=== PATIENT | female | born 1980 | race Hispanic/Latino ===

== ENCOUNTER 2017-11-14 00:27 | Emergency (ER) | payer OTHER ==
[~2017-11-14] VITALS: Ht 170.2 cm; Wt 80.7 kg
[~2017-11-14 00:27] MED LIST: BENTYL20 M1 PO; BUSPIRONE HCL10 MG PO; CIPRO 500MG (E500 MG PO; COD LIVER OIL1 CAP PO; DOXYCYCLINE100 MG PO; FLEXERIL10 MG PO; MIRENA52 MG; MOTRIN800 MG PO; NAPROXEN500 MG PO; NATURAL IRON65 MG PO; PERCOCET 325 MG1 TAB PO; RITE AID BIO2500 MCG PO; TRAMADOL50 MG PO; VITAMIN B COMPL1 CAP PO; VITAMIN C500 M3 PO; [UNRECOGNIZED DRUG - OTHER] PO
--- NOTE | 2017-11-14 00:33 | ED GI/GU/ABDOMINAL COMPLAINT ---
History of Present Illness General Chief Complaint: General Adult Stated Complaint: "UTI, ONLY HAVE ONE KIDNEY" 30 WEEKS PREG PER PT Source: patient Exam Limitations: no limitations Vital Signs & Intake/Output Vital Signs & Intake/Output Vital Signs Date Time Temp Pulse Resp B/P B/P Pulse O2 O2 Flow FiO2 Mean Ox Delivery Rate 11/14 0037 97.8 72 18 98/62 100 Room Air Allergies Coded Allergies: NO KNOWN ALLERGIES (11/10/14) Reconcile Medications Buspirone Hydrochloride (Buspirone HCl) 10 MG TAB 1 TAB PO BID HEART RACING ( Reported) Cephalexin (Keflex) 500 MG CAPSULE 1 CAP PO 4 TIMES/DAY INFECTION x 10 days Dicyclomine HCl (Bentyl) 20 MG TABLET 1 TAB PO 4 TIMES/DAY ABDOMINAL PAIN Triage Nurses Notes Reviewed? yes ? y Is pt currently ? No Onset: Gradual Duration: hour(s): Timing: recent history Location: suprapubic Radiation: no radiation Activities at Onset: none Modifying Factors: Worsens With: urinating. Associated Symptoms: dysuria HPI: 36 yo woman 30 week gestation, h/o single kidney presents with increased urination, dysuria, "I have a urinary tract infection... it really patricai." She noted a few episode of abdominal pain, "It felt a little stronger than stephanie garcia contractions..." She denies fever, flank pain, nausea, vomiting, vaginal bleeding or discharge. She is otherwise well. Past History Travel History Traveled to [place] past 21 day No Medical History Any Pertinent Medical History? 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 No Review of Systems Review of Systems Constitutional: Reports: no symptoms. EENTM: Reports: no symptoms. Respiratory: Reports: no symptoms. Cardiovascular: Reports: no symptoms. GI: Reports: no symptoms. Genitourinary: Reports: no symptoms. Musculoskeletal: Reports: no symptoms. Skin: Reports: no symptoms. Neurological/Psychological: Reports: no symptoms. Hematologic/Endocrine: Reports: no symptoms. Immunologic/Allergic: Reports: no symptoms. All Other Systems: Reviewed and Negative Physical Exam Physical Exam Gastrointestinal: see below Comments: Review of Systems - except as otherwise noted in HPI Physical Exam Physical Exam General Appearance: well developed/nourished, no apparent distress Head: atraumatic, normal appearance Eyes: Bilateral: normal appearance. Ears, Nose, Throat: normal pharynx, normal ENT inspection Neck: normal inspection, supple, full range of motion Respiratory: normal breath sounds, chest non-tender, no respiratory distress, quiet respiration, lungs clear Cardiovascular: regular rate/rhythm Gastrointestinal: normal bowel sounds, soft, gravid uterus above umbilicus, mild suprapubic tendernss. no CVA tenderness. Back: normal inspection, normal range of motion Extremities: normal inspection, normal capillary refill, normal range of motion, no edema Neurologic/Psych: no motor/sensory deficits, awake, alert, oriented x 3 Skin: intact, normal color, warm/dry Core Measures ACS in differential dx? No Sepsis Present: No Sepsis Focused Exam Completed? No Progress Differential Diagnosis: UTI/pyelo, vs other Plan of Care: Orders Procedure Date/time Status CULTURE,URINE 11/14 28 Active URINALYSIS 11/14 28 Complete CBC WITHOUT DIFFERENTIAL 11/14 28 Complete BASIC METABOLIC PANEL 11/14 28 Complete Laboratory Tests 11/14/17 0117: Anion Gap 9, Estimated GFR > 60, BUN/Creatinine Ratio 12.9, Glucose 89, Calcium 9.1, CBC w Diff NO MAN DIFF REQ, RBC 3.36 L, MCV 93.7, MCH 32.0 H, MCHC 34.2, RDW 12.9, MPV 8.1, Gran % 78.0 H, Lymphocytes % 13.4 L, Monocytes % 7.1, Eosinophils % 1.2, Basophils % 0.3, Absolute Granulocytes 10.3 H, Absolute Lymphocytes 1.8, Absolute Monocytes 0.9 H, Absolute Eosinophils 0.2, Absolute Basophils 0 11/14/17 0035: Urinalysis LIGHT H, Urine Color YEL, Urine Clarity HAZY H, Urine pH 7.0, Ur Specific Calvin 1.010, Urine Protein NEG, Urine Ketones NEG, Urine Nitrite NEG, Urine Bilirubin NEG, Urine Urobilinogen 0.2, Ur Leukocyte Esterase LARGE H, Ur Microscopic SEDIMENT EXAMINED, Urine RBC 5-10 H, Urine WBC 25-50 H, Ur Epithelial Cells FEW, Urine Bacteria MOD H, Urine Hemoglobin MOD H, Urine Glucose NEG Microbiology 11/14 0035 URINE ROUT: Urine Culture - RECD Initial ED EKG: none Departure Departure Disposition: HOME OR SELF CARE Condition: Stable Clinical Impression Primary Impression: Urinary tract infection Secondary Impressions: Referrals: Arnold ROBERTO,Lloyd Ramachandran (PCP/Family) Departure Forms: Customer Survey General Discharge Information Prescriptions: Current Visit Scripts Cephalexin (Keflex) 1 CAP PO 4 TIMES/DAY #40 CAP x 10 days Comments 11/14/17, 2:20am... pt feeling well, comfortable in ED... afebrile... pt referred to child to evaluate for intermittent sensation of contractions. Comments 11/14/17, 2:20am... pt feeling well, comfortable in ED...
[2017-11-14 01:32] LABS: ABSOLUTE BASOPHIL COUNT 0 /CUMM (0.0-0.2); ABSOLUTE EOSINOPHIL COUNT 0.2 /CUMM (0.0-0.7); ABSOLUTE GRANULOCYTE CT 10.3 /CUMM (1.4-6.5); ABSOLUTE LYMPH COUNT 1.8 /CUMM (1.2-3.4); ABSOLUTE MONOCYTE COUNT 0.9 /CUMM (0.10-0.60); BASOPHIL % 0.3 % (0.0-2.0); EOSINOPHIL % 1.2 % (0-5); HEMATOCRIT 31.5 % (37-47); MEAN CORPUSCULAR HGB CONC 34.2 G/DL (33.0-37.0); MEAN CORPUSCULAR VOLUME 93.7 FL (81.0-99.0); MEAN PLATELET VOLUME 8.1 FL (7.4-10.4); PLATELET COUNT 259 /CUMM (130-400); RBC DISTRIBUTION WIDTH 12.9 % (11.5-14.5); RED BLOOD CELL CT 3.36 /CUMM (4.20-5.40); WHITE BLOOD CELL COUNT 13.3 /CUMM (4.8-10.8)
[2017-11-14] MEDS ORDERED: KEFLEX500 M1 PO (02:04)
[2017-11-14 02:53] VITALS: BP 100/52
[2017-11-14] MEDS ORDERED: FERREX 150150 M1 PO (03:07)
== END 2017-11-14 02:55 ==
LOC: ERH 00:27
PROVIDERS: Physician Assistant
DX: O23.43 Unspecified infection of urinary tract in pregnancy, third trimester (principal); Z3A.30 30 weeks gestation of pregnancy
CPT/HCPCS: 81001; 87086; 96374; 96375; J0131; J0696

== ENCOUNTER 2018-01-13 19:29 | Inpatient (IN) | payer OTHER ==
[~2018-01-13] VITALS: Ht 170.2 cm; Wt 86.2 kg
[~2018-01-13 19:29] MED LIST changes: +FERREX 150150 M1 PO; +KEFLEX500 M1 PO
[2018-01-13 20:46] LABS: ABSOLUTE BASOPHIL COUNT 0.1 /CUMM (0.0-0.2); ABSOLUTE EOSINOPHIL COUNT 0.1 /CUMM (0.0-0.7); ABSOLUTE GRANULOCYTE CT 9.4 /CUMM (1.4-6.5); ABSOLUTE MONOCYTE COUNT 0.9 /CUMM (0.10-0.60); BASOPHIL % 0.4 % (0.0-2.0); EOSINOPHIL % 0.9 % (0-5); GRANULOCYTE % 75.6 % (42.2-75.2); HEMATOCRIT 35.2 % (37-47); MEAN CORPUSCULAR HGB 32.8 PG (27.0-31.0); MEAN CORPUSCULAR HGB CONC 33.5 G/DL (33.0-37.0); MEAN CORPUSCULAR VOLUME 97.9 FL (81.0-99.0); MEAN PLATELET VOLUME 9.3 FL (7.4-10.4); PLATELET COUNT 269 /CUMM (130-400); RBC DISTRIBUTION WIDTH 14.5 % (11.5-14.5); RED BLOOD CELL CT 3.59 /CUMM (4.20-5.40); WHITE BLOOD CELL COUNT 12.5 /CUMM (4.8-10.8)
--- NOTE | 2018-01-13 21:43 | History & Physical ---
General Information and HPI MD Statement: I have seen and personally examined ROQUE MEEKS and documented this H&P. Source of Information: patient, old records Exam Limitations: no limitations History of Present Illness: The patient is a 37 year old at 38 weeks and 6 days gestation who presented with a chief complaint of painful ctx and LOF, clr, since last 830p . GBS neg. No F/C. No vb. +FM. AP care c/b AMA, declined genetics screening. Heide sono wnl. 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 x 1 Medical History Neurological: NONE EENT: NONE Cardiovascular: NONE Respiratory: NONE Gastrointestinal: NONE Hepatic: NONE Renal: donated right kidney to father Musculoskeletal: NONE Psychiatric: anxiety Endocrine: NONE Blood Disorders: NONE Cancer(s): NONE 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 No Contractions: q 2-4 Infant #1 - FHR Baseline: 130 Category: 1 Estimated Weight: 3300 Presentation: vtx Patient for Induction? No Physical Exam: nad abd soft nt gravid Ext nt no ed Labs Blood Type & Rh: B pos Antibody Screen: neg Hct/Hgb & Platelets #1: 12.7/ 40.1, 333 Hct/Hgb & Platelets #2: 10.2/ 33.5, 237 Rubella: imm VDRL #1: neg VDRL #2: neg HbsAg: neg HIV #1: neg HIV #2 neg 1 Hr P Group B Strep: neg Initial Ultrasound: 06/25/17 siup 10 wks cwd Anatomy Ultrasound: 09/03/17 nl heide Ultrasound for EFW: 01/07 38wks, 55% Genetic Testing: declined Last 24 Hrs of Labs/Suhas: Laboratory Tests 01/13/182009: CBC w Diff NO MAN DIFF REQ, RBC 3.59 L, MCV 97.9, MCH 32.8 H, MCHC 33.5, RDW 14.5, MPV 9.3, Gran % 75.6 H, Lymphocytes % 15.7 L, Monocytes % 7.4, Eosinophils % 0.9, Basophils % 0.4, Absolute Granulocytes 9.4 H, Absolute Lymphocytes 2.0, Absolute Monocytes 0.9 H, Absolute Eosinophils 0.1, Absolute Basophils 0.1, Urine Color YEL, Urine Clarity CLEAR, Urine pH 7.0, Ur Specific [place] 1.010, Urine Protein NEG, Urine Ketones NEG, Urine Nitrite NEG, Urine Bilirubin NEG, Urine Urobilinogen 0.2, Ur Leukocyte Esterase NEG, Ur Microscopic EXAM NOT REQUIRED, Urine Hemoglobin NEG, Urine Glucose NEG 01/13/181944: Membrane Rupture POSITIVE Assessment/Plan Assessment/Plan: 37yo P1 @ 38+6 in early labor, prolonged PROM 01/12 830p, GBS neg, afeb, no e/o chorio. and maternal status reassuring. -Admit -anesthesia for pain mgmt -monitoring -ANSVD As Ranked By This Provider Problem List: 1. Core Measures Venous Thromboembolism VTE Risk Factors / No Mechanical VTE Prophylaxis d/t Early Ambulation No VTE Pharm Prophylaxis d/t LowRisk-No Interven Req'd
--- NOTE | 2018-01-14 06:52 | Labor & Delivery Summary ---
Delivery Summary Vaginal Delivery: Vaginal: spontaneous Episiotomy/Lacerations: Episiotomy/Lacerations: none Placenta: Placenta: spontanteous, normal, 3 vessel Anesthesia: block Apgars - 1 Min: 9 Apgars - 5 Min: 9 Additional Comments: Pt ctx spaced out after epidural. Pitocin started. Pt progressed on 2mu pit overnight to FD / +1. Pt pushed for a few ctx. Controlled of live male, agp 01/06. Head del over intact perineum from NICOLLE. Mouth and nose bulb suctioned. Body delivered w/o difficulty. Baby to mom's chest. Cord clamped and cut. 3vc plac del spont intact. Fundus well contracted. No lacerations. EBL 250cc. Pt tolerated well.
[2018-01-15 09:21] LABS: ABSOLUTE BASOPHIL COUNT 0.1 /CUMM (0.0-0.2); ABSOLUTE EOSINOPHIL COUNT 0.2 /CUMM (0.0-0.7); ABSOLUTE MONOCYTE COUNT 0.8 /CUMM (0.10-0.60); BASOPHIL % 0.4 % (0.0-2.0); EOSINOPHIL % 1.2 % (0-5); GRANULOCYTE % 78.2 % (42.2-75.2); HEMATOCRIT 36.3 % (37-47); MEAN CORPUSCULAR HGB 32.8 PG (27.0-31.0); MEAN CORPUSCULAR HGB CONC 34.1 G/DL (33.0-37.0); MEAN CORPUSCULAR VOLUME 96.2 FL (81.0-99.0); MEAN PLATELET VOLUME 9.2 FL (7.4-10.4); PLATELET COUNT 258 /CUMM (130-400); RBC DISTRIBUTION WIDTH 14.7 % (11.5-14.5); RED BLOOD CELL CT 3.77 /CUMM (4.20-5.40)
--- NOTE | 2018-01-15 14:32 | PN- Post Delivery/GYN ---
Subjective Subjective: feeling well Review of Systems Constitutional: Denies: chills, fever. EENTM: Denies: blurred vision, double vision, visual changes. Genitourinary: Denies: dysuria. Neurological/Psychological: Denies: anxiety, depressed. Objective Last 24 Hrs of Vital Signs/I&O vss Physical Exam General Appearance Alert, Oriented X3, Cooperative, No Acute Distress Cardiovascular Normal S1 Lungs Clear to Auscultation Abdomen Soft Pelvic (FEMALE) lochia serosanganous Current Medications: Current Medications Sig/Jose Start time Last Medication Dose Route Stop Time Status Admin Acetaminophen 650 MG Q4P PRN 01/14 07 AC 01/14 PO 1821 Docusate Sodium 100 MG BID PRN 01/14 07 AC PO Ibuprofen 0 .STK-MED ONE 01/14 1449 DC PO Ibuprofen 800 MG Q6P PRN 01/14 07 AC 01/15 PO 1208 Lactated Ringer's 1,000 ML Q8H 01/13 2015 DC 01/14 IV 0000 Oxytocin 30 UNITS PER PROTOCL 01/14 06 AC 01/13 Lactated Ringer's 500 ML IV 2250 Last 24 Hrs of Labs/Suhas: Laboratory Tests 01/15/18 0830: CBC w Diff NO MAN DIFF REQ, RBC 3.77 L, MCV 96.2, MCH 32.8 H, MCHC 34.1, RDW 14.7 H, MPV 9.2, Gran % 78.2 H, Lymphocytes % 14.4 L, Monocytes % 5.8, Eosinophils % 1.2, Basophils % 0.4, Absolute Granulocytes 11.0 H, Absolute Lymphocytes 2.0, Absolute Monocytes 0.8 H, Absolute Eosinophils 0.2, Absolute Basophils 0.1 Assessment/Plan Assessment/Plan ppd #1 vss afebrile /plan d/c in am Problem List: 1. Attending MD Review Statement Attending Statement Attending MD Statement: examined this patient, discussed with family, discussed with nursing
[2018-01-16] MEDS ORDERED: IBUPROFEN800 M1 PO (10:34)
--- NOTE | 2018-01-16 10:53 | PN- OBGYN ---
Surgical Brief Attending Note Brief Attending Note: pt feeling well. amb / void/ jose po. pain well controlled. +bf. afeb, v/ss nad abd soft nt ff douglas min lochia ext nt tr b/l le ed a/p ppd 2 s/p , doing well -d/c home w/ f/u 6 wks -routine pp care -d/c instructions reviewed
== END 2018-01-16 12:00 | DRG 775 ==
LOC: CBCO 19:29 → GNO 20:06
PROVIDERS: Obstetrics & Gynecology
PROC: 10E0XZZ Delivery of Products of Conception, External Approach (ICD-10-PCS; principal; 2018-01-14)
DX: O80 Encounter for full-term uncomplicated delivery (principal); Z37.0 Single live birth; Z3A.39 39 weeks gestation of pregnancy; Z90.5 Acquired absence of kidney
CPT/HCPCS: GNOP; GNOS; 36415; 81003; 84112; J2405; J7120